=== PATIENT | female | born 1965 | race Caucasian/White ===

== ENCOUNTER 2024-04-05 06:57 | Day surgery (SDC) | payer MEDICARE, OTHER ==
[2024-04-05] MEDS: Lactated Ringers 1,000 ML IV SCH (07:31)
[2024-04-05] MEDS ORDERED: Midazolam 1 MG/ML 2 ML SDV ONE (08:01)
[2024-04-05] MEDS ORDERED: Propofol 200 MG/20 ML SDV ONE (08:01)
[2024-04-05] MEDS ORDERED: fentaNYL 50 MCG/ML SDV ONE (08:01)
== END 2024-04-05 10:11 | disposition home or self-care (01) ==
LOC: JP.SDS 06:57
PROVIDERS: ATTEND Family Medicine
DX: K92.1 Melena (principal)
CPT/HCPCS: 45378; J2250; J2704; J3010; J7120